=== PATIENT | male | born 1965 | race Caucasian/White ===

== ENCOUNTER → 2018-07-12 | Outpatient (CLI) | payer OTHER ==
[~2018-07-12] MED LIST: ISOVUE-370 76% 100ML VIAL (Q9967) As Ordered
== END ==
LOC: M RAD 10:08
DX: R13.10 Dysphagia, unspecified (principal)
CPT/HCPCS: Q9967

== ENCOUNTER → 2019-02-21 | Outpatient (CLI) | payer MEDICAID, SELFPAY ==
[~2019-02-21] MED LIST changes: +ATEN50TA2; +GUAIFENESIN; +IBUP600T; -ISOVUE-370 76% 100ML VIAL (Q9967) As Ordered; +NICO21DI4; +PERC5TAB8; +PROT1TAB2; +SILVADENE CREAM; +blood pressure med
--- NOTE | 2019-02-21 15:53 | REP ---
TRANSRECTAL PROSTATE ULTRASOUND: Real-time sonographic evaluation of the prostate performed utilizing transrectal probe. Size of the gland is 3.8 x 2.7 x 4.0 cm, total volume is 21.2 mL. No peripheral zone nodule is seen. A few tiny echogenic calcifications are seen in the prostate. There is a periurethral cyst 7 x 4 x 6 mm. No other abnormalities are seen. Electronically Signed by Stephon Davis MD 02/21/2019 04:03 P
== END ==
LOC: M RAD 10:55
PROVIDERS: ATTEND Nurse Practitioner Adult Health
DX: N42.0 Calculus of prostate (principal); N36.8 Other specified disorders of urethra

== ENCOUNTER 2019-05-12 09:36 | Emergency (ER) | payer MEDICAID, OTHER ==
[~2019-05-12] VITALS: Ht 182.9 cm; Wt 67.3 kg
[~2019-05-12 09:36] MED LIST changes: -ATEN50TA2; +ATEN50TA2 PO
[2019-05-12 10:20] LABS: BASO % 0.2 % (0.0-1.0); EOS # 0.1 10^3/uL (0.0-0.50); EOS % 0.8 % (0.0-3.0); HEMATOCRIT 48.8 % (42.0-52.0); HEMOGLOBIN 16.4 g/dl (13.5-17.5); LYMPH # 1.6 10^3/uL (1.5-4.5); LYMPH % 26.4 % (24.0-44.0); MEAN CORPUSCULAR HEMOGLOBIN 32.3 pg (27.0-33.0); MEAN CORPUSCULAR HGB CONC 33.6 g/dl (32.0-36.5); MEAN CORPUSCULAR VOLUME 96.3 fl (80.0-96.0); MONO # 0.9 10^3/uL (0.0-0.8); MONO % 14.7 % (0.0-5.0); NEUTROPHILS # 3.5 10^3/uL (1.8-7.7); NEUTROPHILS % 57.6 % (36.0-66.0); PLATELET COUNT, AUTOMATED 172 10^3/uL (150-450); RED BLOOD COUNT 5.07 10^6/uL (4.30-6.10)
[2019-05-12 10:43] LABS: ALBUMIN 4.3 GM/DL (3.2-5.2); ALT/SGPT 28 U/L (12-78); BILIRUBIN,DIRECT 0.2 MG/DL (0.0-0.2); BILIRUBIN,TOTAL 0.8 MG/DL (0.2-1.0); BLOOD UREA NITROGEN 13 MG/DL (7-18); C REACTIVE PROTEIN QUANTITATIV 0.89 MG/DL (0.00-0.30); CALCIUM LEVEL 9.4 MG/DL (8.5-10.1); CARBON DIOXIDE LEVEL 29 MEQ/L (21-32); CHLORIDE LEVEL 106 MEQ/L (98-107); CREATININE FOR GFR 0.86 MG/DL (0.70-1.30); GLOMERULAR FILTRATION RATE > 60.0 (>56); GLUCOSE, FASTING 105 MG/DL (70-100); POTASSIUM SERUM 5.5 MEQ/L (3.5-5.1); SODIUM LEVEL 138 MEQ/L (136-145); TOTAL PROTEIN 7.9 GM/DL (6.4-8.2)
[2019-05-12 10:47] LABS: ERYTHROCYTE SEDIMENTATION RATE 4 mm/hr (0-20)
--- NOTE | 2019-05-12 11:39 | REP ---
LEFT KNEE SERIES: Five views of the left knee performed. There is no acute fracture or dislocation. Metallic newton is seen in the distal femur as well as two metallic screws. There is mild medial joint space narrowing. There is mild spurring of the tibial spines. Rounded calcific densities along the medial patellar facet and medial femoral condyle may represent old fractures. There is mild patellofemoral compartment narrowing. There is a mild to moderate joint effusion. Vascular calcifications are seen posteriorly. IMPRESSION: Mild degenerative changes with evidence of prior trauma. No acute fracture or dislocation. Mild to moderate joint effusion. Electronically Signed by Stephon Davis MD 05/12/2019 04:20 P
[2019-05-12] MEDS ORDERED: LIDOCAINE 1% SDV INJ 30 ML VIAL SC SCH (12:15)
[2019-05-12] MEDS ORDERED: IBUP80TA PO (12:38)
[2019-05-12 12:47] VITALS: BP 140/90
[2019-05-12 13:26] LABS: SOURCE, BODY FLUID GLUCOSE LFT KNEE
[2019-05-12 13:27] LABS: SOURCE, BODY FLUID URIC ACID LFT KNEE
[2019-05-12 13:29] LABS: CRYSTALS, BODY FLUID NONE SEEN (NONE SEEN); SOURCE, BODY FLUID CRYSTALS LFT KNEE
[2019-05-12 13:47] LABS: SOURCE, BODY FLUID LFT KNEE; SYNOVIAL FLUID COLOR RED (YELLOW)
[2019-05-13] MEDS ORDERED: NEOSPORIN TOP OINT 15GM TOP ONE (09:00)
== END 2019-05-12 13:49 | disposition home or self-care (01) ==
LOC: M ED 09:36
DX: M17.12 Unilateral primary osteoarthritis, left knee (principal); E87.5 Hyperkalemia; I10 Essential (primary) hypertension; Z79.899 Other long term (current) drug therapy; F17.210 Nicotine dependence, cigarettes, uncomplicated

== ENCOUNTER → 2022-06-20 | Outpatient (CLI) | payer OTHER ==
[~2022-06-20] MED LIST changes: +IBUP80TA PO
== END ==
LOC: M RAD 09:54
PROVIDERS: ATTEND Otolaryngology
DX: R13.10 Dysphagia, unspecified (principal)

== ENCOUNTER → 2022-10-08 | Outpatient (CLI) | payer OTHER ==
[~2022-10-08] MED LIST changes: +ATEN25TA PO; +ATOR80TA59 PO; +B-1100TA2 PO; +CLOP75TA2 PO; +FOLI1TAB11 PO; +GABA-1171 PO; +PANT40TA29 PO
== END ==
LOC: M LABSMTC 10:41
PROVIDERS: ATTEND Anesthesiology
DX: Z01.812 Encounter for preprocedural laboratory examination (principal); Z20.822 Contact with and (suspected) exposure to COVID-19

== ENCOUNTER 2022-10-11 10:14 | Day surgery (SDC) | payer OTHER ==
[~2022-10-11] VITALS: Ht 185.4 cm; Wt 74.8 kg
[2022-10-11] MEDS ORDERED: fentaNYL 100 MCG/2 ML INJECTION As Ordered ONE ×2 (10:32→11:08)
[2022-10-11] MEDS ORDERED: ROCURONIUM BROMIDE 50 MG/5 ML VIAL As Ordered ONE ×2 (10:32→11:11)
[2022-10-11] MEDS ORDERED: LIDOCAINE 2% 100MG/5ML SDV (FOR ANES.) As Ordered ONE ×2 (10:32→11:11)
[2022-10-11] MEDS ORDERED: propofoL 200 MG/20 ML VIAL As Ordered ONE ×2 (10:32→11:10)
[2022-10-11] MEDS ORDERED: MIDAZOLAM INJ 2MG/2ML VIAL (J2250 PER 1MG) As Ordered ONE ×2 (10:33→11:08)
[2022-10-11] MEDS ORDERED: dexameTHASONE 4 MG/ML 1ML VIAL (J1100 PER 1MG) As Ordered ONE (10:33)
[2022-10-11] MEDS ORDERED: ONDANSETRON 4MG 2ML VIAL As Ordered ONE (10:33)
[2022-10-11] MEDS ORDERED: OXYMETAZOLINE 0.05% NASAL SPRAY (AFRIN) As Ordered ONE (10:42)
[2022-10-11] MEDS ORDERED: LIDOCAINE W/EPINEPHRINE 1% 20ML VIAL As Ordered ONE (10:42)
[2022-10-11] MEDS ORDERED: SUGAMMADEX SODIUM 500 MG/5 ML VIAL (BRIDION) As Ordered ONE (12:17)
[2022-10-11] MEDS ORDERED: LR 1,000 ML IV SCH ×2 (12:20→13:10)
[2022-10-11] MEDS ORDERED: ONDANSETRON 4MG 2ML VIAL IV PRN ×2 (12:20→13:10)
[2022-10-11] MEDS ORDERED: oxyCODONE 5MG TAB PO PRN (12:20)
[2022-10-11] MEDS ORDERED: ANEXSIA, NORCO 7.5MG/325MG TABLET(HYDROCODONE/APAP) PO PRN (13:10)
[2022-10-11 14:10] VITALS: BP 143/74
== END 2022-10-11 14:25 | disposition home or self-care (01) ==
LOC: M SDC 10:14
PROVIDERS: ATTEND Otolaryngology
DX: C32.1 Malignant neoplasm of supraglottis (principal); I10 Essential (primary) hypertension; F12.10 Cannabis abuse, uncomplicated; F17.220 Nicotine dependence, chewing tobacco, uncomplicated; Z79.02 Long term (current) use of antithrombotics/antiplatelets; Z79.899 Other long term (current) drug therapy
CPT/HCPCS: 31536; 88305; J1100; J2250; J2405; J3010

== ENCOUNTER → 2022-11-01 | Outpatient (CLI) | payer OTHER ==
[~2022-11-01] MED LIST changes: +AMOX875T2 PO; +B-12100010 PO; +HYDR-3713 PO; +METH-1164 PO; +NEUR600T PO; +THIA100TA PO
== END ==
LOC: M ONCR 08:57
PROVIDERS: ATTEND General Practice
DX: C32.1 Malignant neoplasm of supraglottis (principal); F17.220 Nicotine dependence, chewing tobacco, uncomplicated; S81.802A Unspecified open wound, left lower leg, initial encounter; E78.5 Hyperlipidemia, unspecified; I51.9 Heart disease, unspecified; Z79.02 Long term (current) use of antithrombotics/antiplatelets; Z79.899 Other long term (current) drug therapy; Z95.820 Peripheral vascular angioplasty status with implants and grafts
CPT/HCPCS: 31575; G0463

== ENCOUNTER → 2022-11-13 | Outpatient (CLI) | payer OTHER ==
[~2022-11-13] MED LIST changes: +ISOVUE-370 76% 100ML VIAL As Ordered ONE
[2022-11-13 09:01] LABS: HEMATOCRIT 38.2 % (42.0-52.0); HEMOGLOBIN 12.1 g/dl (13.5-17.5); MEAN CORPUSCULAR HEMOGLOBIN 28.9 pg (27.0-33.0); MEAN CORPUSCULAR HGB CONC 31.7 g/dl (32.0-36.5); MEAN CORPUSCULAR VOLUME 91.2 fl (80.0-96.0); PLATELET COUNT, AUTOMATED 297 10^3/uL (150-450); RED BLOOD COUNT 4.19 10^6/uL (4.30-6.10); WHITE BLOOD COUNT 4.3 10^3/uL (4.0-10.0)
[2022-11-13 09:27] LABS: ALBUMIN 3.6 G/DL (3.2-5.2); ALKALINE PHOSPHATASE 99 U/L (46-116); ALT/SGPT 21 U/L (7.0-40); AST/SGOT 29 U/L (<34); BILIRUBIN,TOTAL 0.3 MG/DL (0.3-1.2); BLOOD UREA NITROGEN 9 MG/DL (9-23); CALCIUM LEVEL 9.4 MG/DL (8.5-10.1); CARBON DIOXIDE LEVEL 27 MMOL/L (20-31); CHLORIDE LEVEL 104 MMOL/L (98-107); CREATININE FOR GFR 0.63 MG/DL (0.70-1.30); GLOMERULAR FILTRATION RATE > 60.0 (>56); GLUCOSE, FASTING 97 MG/DL (60-100); POTASSIUM SERUM 4.7 MMOL/L (3.5-5.1); SODIUM LEVEL 139 MMOL/L (136-145); TOTAL PROTEIN 7.4 G/DL (5.7-8.2)
[2022-11-13 09:28] LABS: THYROID STIMULATING HORMONE 1.107 uIU/ML (0.55-4.78)
[2022-11-13 09:29] LABS: FREE T4 0.92 NG/DL (0.89-1.76)
== END ==
LOC: M RAD 07:57
PROVIDERS: ATTEND General Practice
DX: C32.1 Malignant neoplasm of supraglottis (principal); L97.929 Non-pressure chronic ulcer of unspecified part of left lower leg with unspecified severity

== ENCOUNTER 2022-11-16 10:10 | Outpatient (RCR) | payer OTHER ==
[~2022-11-16 10:10] MED LIST changes: -ISOVUE-370 76% 100ML VIAL As Ordered ONE
[2022-11-23] MEDS ORDERED: HYDR-3713 PO (12:25)
== END 2022-11-25 ==
LOC: M ONCR 10:10
PROVIDERS: ATTEND General Practice
DX: C32.1 Malignant neoplasm of supraglottis (principal)

== ENCOUNTER → 2022-12-26 | Outpatient (RCR) | payer OTHER ==
[~2022-12-26] MED LIST changes: +MAGICMW SSP; +ONDA4TAB6 PO; +PERC10TA26 PO; +XANA0.5T PO
== END ==
LOC: M ONCR 11-29 09:26
PROVIDERS: ATTEND General Practice
DX: C32.1 Malignant neoplasm of supraglottis (principal)

== ENCOUNTER 2023-01-22 09:20 | Outpatient (RCR) | payer OTHER ==
[~2023-01-22 09:20] MED LIST changes: +PERCOCET PO
[2023-01-25] MEDS ORDERED: XANA0.5T PO (12:06)
== END 2023-01-23 ==
LOC: M ONCR 09:20
PROVIDERS: ATTEND General Practice
DX: C32.1 Malignant neoplasm of supraglottis (principal); L97.929 Non-pressure chronic ulcer of unspecified part of left lower leg with unspecified severity

== ENCOUNTER → 2023-03-28 | Outpatient (CLI) | payer OTHER ==
[~2023-03-28] MED LIST changes: +ONDA-83 PO; +ONDANSETRON 4MG ORAL DISINTEGRATING TAB PO ONE
== END ==
LOC: M ONCR 10:03
PROVIDERS: ATTEND General Practice
DX: M79.605 Pain in left leg (principal); R07.0 Pain in throat; R13.10 Dysphagia, unspecified; T86.821 Skin graft (allograft) (autograft) failure; Z92.3 Personal history of irradiation

== ENCOUNTER → 2023-04-09 | Outpatient (CLI) | payer OTHER ==
[~2023-04-09] MED LIST changes: -ONDANSETRON 4MG ORAL DISINTEGRATING TAB PO ONE
== END ==
LOC: M PLARAD 15:26
PROVIDERS: ATTEND General Practice
DX: C32.1 Malignant neoplasm of supraglottis (principal)
CPT/HCPCS: 78815; A9552

== ENCOUNTER → 2023-04-17 | Outpatient (CLI) | payer OTHER | LOC: M ONCR 15:00 | PROVIDERS: ATTEND General Practice | DX: C32.1 Malignant neoplasm of supraglottis (principal); L97.929 Non-pressure chronic ulcer of unspecified part of left lower leg with unspecified severity; F17.220 Nicotine dependence, chewing tobacco, uncomplicated; Z79.01 Long term (current) use of anticoagulants; Z79.899 Other long term (current) drug therapy; Z92.3 Personal history of irradiation; Z95.820 Peripheral vascular angioplasty status with implants and grafts | CPT/HCPCS: 31575; G0463 ==

== ENCOUNTER → 2023-07-18 | Outpatient (CLI) | payer OTHER ==
[2023-07-18 16:42] LABS: BASO % 0.2 % (0.0-1.0); EOS % 0.8 % (0.0-3.0); HEMATOCRIT 39.2 % (42.0-52.0); HEMOGLOBIN 12.2 g/dl (13.5-17.5); LYMPH % 18.3 % (24.0-44.0); MEAN CORPUSCULAR HEMOGLOBIN 26.2 pg (27.0-33.0); MEAN CORPUSCULAR HGB CONC 31.1 g/dl (32.0-36.5); MEAN CORPUSCULAR VOLUME 84.3 fl (80.0-96.0); MONO # 0.7 10^3/uL (0.0-0.8); MONO % 13.1 % (2.0-8.0); NEUTROPHILS # 3.5 10^3/uL (1.5-8.5); NEUTROPHILS % 67.2 % (36.0-66.0); PLATELET COUNT, AUTOMATED 226 10^3/uL (150-450); RED BLOOD COUNT 4.65 10^6/uL (4.30-6.10); WHITE BLOOD COUNT 5.3 10^3/uL (4.0-10.0)
[2023-07-18 17:05] LABS: ALBUMIN 3.8 G/DL (3.2-5.2); ALKALINE PHOSPHATASE 93 U/L (46-116); ALT/SGPT 47 U/L (7.0-40); AST/SGOT 41 U/L (<34); BILIRUBIN,TOTAL 0.3 MG/DL (0.3-1.2); BLOOD UREA NITROGEN 8 MG/DL (9-23); CALCIUM LEVEL 9.4 MG/DL (8.3-10.6); CARBON DIOXIDE LEVEL 24 MMOL/L (20-31); CHLORIDE LEVEL 103 MMOL/L (98-107); CHOLESTEROL LEVEL 127 MG/DL (<200); CHOLESTEROL RISK RATIO 2.25 (<5); CREATININE FOR GFR 0.57 MG/DL (0.70-1.30); GLOMERULAR FILTRATION RATE > 60.0 (>49); GLUCOSE, FASTING 83 MG/DL (74-106); HDL CHOLESTEROL 56.3 MG/DL (>40); LDL CHOLESTEROL 52.1 MG/DL (<100); NON-HDL-C 70.7 MG/DL; SODIUM LEVEL 137 MMOL/L (136-145); TOTAL PROTEIN 7.4 G/DL (5.7-8.2); TRIGLYCERIDES LEVEL 93 MG/DL (<150)
[2023-07-18 17:07] LABS: FREE T4 0.95 NG/DL (0.89-1.76); THYROID STIMULATING HORMONE 1.428 uIU/ML (0.55-4.78)
== END ==
LOC: M ONCR 15:00
PROVIDERS: ATTEND General Practice
DX: Z08 Encounter for follow-up examination after completed treatment for malignant neoplasm (principal); Z85.21 Personal history of malignant neoplasm of larynx; Z85.828 Personal history of other malignant neoplasm of skin; R05.9 Cough, unspecified; F17.220 Nicotine dependence, chewing tobacco, uncomplicated; Z71.2 Person consulting for explanation of examination or test findings; Z79.01 Long term (current) use of anticoagulants; Z72.89 Other problems related to lifestyle; Z79.899 Other long term (current) drug therapy; Z92.3 Personal history of irradiation; Z97.14 Presence of artificial left leg (complete) (partial)
CPT/HCPCS: 31575; 36415; 80053; 80061; 84439; 84443; 85025; G0463

== ENCOUNTER 2023-09-18 11:08 | Emergency (ER) | payer OTHER ==
[~2023-09-18] VITALS: Ht 185.4 cm; Wt 71.2 kg
[2023-09-18] MEDS ORDERED: TRAZ-252 (11:54)
[2023-09-18] MEDS ORDERED: DULO-34 (11:54)
[2023-09-18 13:00] VITALS: BP 129/82; O2SAT 98
[2023-09-18 13:13] VITALS: TEMP 98.6
== END 2023-09-18 13:25 | disposition home or self-care (01) ==
LOC: M ED 12:47
DX: S09.90XA Unspecified injury of head, initial encounter (principal); W01.198A Fall on same level from slipping, tripping and stumbling with subsequent striking against other object, initial encounter; I10 Essential (primary) hypertension; F10.10 Alcohol abuse, uncomplicated; Z87.891 Personal history of nicotine dependence; Y92.009 Unspecified place in unspecified non-institutional (private) residence as the place of occurrence of the external cause; Y93.9 Activity, unspecified; Y99.9 Unspecified external cause status; Z79.01 Long term (current) use of anticoagulants; Z79.891 Long term (current) use of opiate analgesic; Z79.899 Other long term (current) drug therapy

== ENCOUNTER → 2023-10-23 | Outpatient (CLI) | payer OTHER ==
[~2023-10-23] MED LIST changes: +DULO-34; +DULO1CAP6 PO; +TRAZ-252
== END ==
LOC: M ONCR 15:07
PROVIDERS: ATTEND General Practice
DX: C32.1 Malignant neoplasm of supraglottis (principal); G54.6 Phantom limb syndrome with pain; R07.0 Pain in throat; F17.220 Nicotine dependence, chewing tobacco, uncomplicated; Z71.2 Person consulting for explanation of examination or test findings; Z79.01 Long term (current) use of anticoagulants; Z79.899 Other long term (current) drug therapy; Z92.3 Personal history of irradiation; Z97.14 Presence of artificial left leg (complete) (partial)
CPT/HCPCS: 31575; G0463

== ENCOUNTER → 2024-04-23 | Outpatient (CLI) | payer BC ==
[~2024-04-23] MED LIST changes: +ISOVUE-370 76% 100ML VIAL As Ordered ONE
== END ==
LOC: M RAD 08:42
PROVIDERS: ATTEND General Practice
DX: C32.1 Malignant neoplasm of supraglottis (principal)
CPT/HCPCS: 70491; 71260; Q9967

== ENCOUNTER → 2024-04-30 | Outpatient (CLI) | payer BC ==
[~2024-04-30] MED LIST changes: -ISOVUE-370 76% 100ML VIAL As Ordered ONE; +ONDA-282 PO; -ONDA4TAB6 PO
== END ==
LOC: M ONCR 10:32
PROVIDERS: ATTEND General Practice
DX: Z08 Encounter for follow-up examination after completed treatment for malignant neoplasm (principal); I73.9 Peripheral vascular disease, unspecified; Z85.21 Personal history of malignant neoplasm of larynx; Z72.0 Tobacco use; Z79.01 Long term (current) use of anticoagulants; Z79.899 Other long term (current) drug therapy; Z89.512 Acquired absence of left leg below knee; Z92.3 Personal history of irradiation
CPT/HCPCS: 31575; G0463

== ENCOUNTER → 2024-04-30 | Outpatient (CLI) | payer BC ==
[2024-04-30 12:44] LABS: HEMATOCRIT 39.5 % (42.0-52.0); MEAN CORPUSCULAR HEMOGLOBIN 27.6 pg (27.0-33.0); MEAN CORPUSCULAR HGB CONC 32.9 g/dl (32.0-36.5); MEAN CORPUSCULAR VOLUME 83.9 fl (80.0-96.0); PLATELET COUNT, AUTOMATED 168 10^3/uL (150-450); RED BLOOD COUNT 4.71 10^6/uL (4.30-6.10)
[2024-04-30 13:06] LABS: ALBUMIN 4.2 G/DL (3.2-5.2); BILIRUBIN,DIRECT 0.3 MG/DL (<0.4); BILIRUBIN,TOTAL 0.7 MG/DL (0.3-1.2); PERCENT SATURATION 13.4 % (19.7-50.0); TOTAL PROTEIN 7.8 G/DL (5.7-8.2)
[2024-04-30 13:09] LABS: FERRITIN 24.1 NG/ML (10.5-307.3)
== END ==
LOC: M LAB 11:48
PROVIDERS: ATTEND Registered Nurse
DX: D50.9 Iron deficiency anemia, unspecified (principal); K76.0 Fatty (change of) liver, not elsewhere classified

== ENCOUNTER → 2024-08-08 | Outpatient (CLI) | payer BC ==
[~2024-08-08] MED LIST changes: +CETI10TA PO
[2024-08-08 13:52] LABS: FREE T4 0.93 NG/DL (0.89-1.76); THYROID STIMULATING HORMONE 2.703 uIU/ML (0.55-4.78)
== END ==
LOC: M ONCR 11:39
PROVIDERS: ATTEND General Practice
DX: C32.1 Malignant neoplasm of supraglottis (principal)

== ENCOUNTER → 2024-11-07 | Outpatient (CLI) | payer BC, OTHER | LOC: M ONCR 10:58 | PROVIDERS: ATTEND General Practice | DX: C32.1 Malignant neoplasm of supraglottis (principal); K13.21 Leukoplakia of oral mucosa, including tongue; Z87.891 Personal history of nicotine dependence; Z92.3 Personal history of irradiation; Z72.89 Other problems related to lifestyle; Z79.02 Long term (current) use of antithrombotics/antiplatelets; Z79.899 Other long term (current) drug therapy | CPT/HCPCS: 31575; G0463 ==

== ENCOUNTER → 2024-11-12 | Outpatient (REF) | payer OTHER | LOC: M LAB REF 17:25 | PROVIDERS: ATTEND Otolaryngology | DX: C02.9 Malignant neoplasm of tongue, unspecified (principal) ==

== ENCOUNTER → 2024-12-10 | Outpatient (CLI) | payer OTHER ==
[~2024-12-10] MED LIST changes: +ISOVUE-370 76% 100ML VIAL As Ordered ONE
== END ==
LOC: M RAD 09:35
PROVIDERS: ATTEND Otolaryngology
DX: C02.9 Malignant neoplasm of tongue, unspecified (principal)
CPT/HCPCS: 70491; Q9967

== ENCOUNTER → 2024-12-22 | Outpatient (CLI) | payer OTHER ==
[~2024-12-22] MED LIST changes: -ISOVUE-370 76% 100ML VIAL As Ordered ONE
== END ==
LOC: M PLARAD 08:08
PROVIDERS: ATTEND Otolaryngology
DX: C02.9 Malignant neoplasm of tongue, unspecified (principal)
CPT/HCPCS: 78815; A9552

== ENCOUNTER 2025-02-23 16:52 | Inpatient (IN) | payer OTHER ==
[~2025-02-23] VITALS: Ht 185.4 cm; Wt 67.0 kg
[~2025-02-23 16:52] MED LIST changes: +ROPI0.5T33 PO; -TRAZ-252; +TRAZ-252 PO
[2025-02-23 18:20] VITALS: BP 119/79; TEMP 97.5
[2025-02-23 18:53] LABS: BASO % 0.1 % (0.0-1.0); EOS # 0.1 10^3/uL (0.0-0.5); EOS % 1.5 % (0.0-3.0); HEMATOCRIT 42.3 % (42.0-52.0); HEMOGLOBIN 14.2 g/dl (13.5-17.5); LYMPH # 1.3 10^3/uL (1.5-5.0); MEAN CORPUSCULAR HEMOGLOBIN 30.1 pg (27.0-33.0); MEAN CORPUSCULAR HGB CONC 33.6 g/dl (32.0-36.5); MEAN CORPUSCULAR VOLUME 89.6 fl (80.0-96.0); MONO # 0.9 10^3/uL (0.0-0.8); MONO % 12.6 % (2.0-8.0); NEUTROPHILS % 67.4 % (36.0-66.0); PLATELET COUNT, AUTOMATED 383 10^3/uL (150-450); RED BLOOD COUNT 4.72 10^6/uL (4.30-6.10); WHITE BLOOD COUNT 7.5 10^3/uL (4.0-10.0)
[2025-02-23] MEDS ORDERED: ONDANSETRON 4MG 2ML VIAL IV PRN (19:15)
[2025-02-23] MEDS ORDERED: NALOXONE INJ 0.4MG/1ML VIAL IV PRN (19:15)
[2025-02-23] MEDS ORDERED: MAALOX 30 ML SUSP *UDC PO PRN (19:15)
[2025-02-23] MEDS ORDERED: MOM 30ML SUSPENSION UDC PO PRN (19:15)
[2025-02-23 19:20] LABS: ALBUMIN 2.7 G/DL (3.2-5.2); ALKALINE PHOSPHATASE 84 U/L (40-129); ALT/SGPT 22 U/L (7.0-40); AST/SGOT 20 U/L (<34); BILIRUBIN,TOTAL 0.4 MG/DL (0.3-1.2); BLOOD UREA NITROGEN 7 MG/DL (9-23); CALCIUM LEVEL 10.1 MG/DL (8.3-10.6); CARBON DIOXIDE LEVEL 28 MMOL/L (20-31); CHLORIDE LEVEL 101 MMOL/L (98-107); CREATININE FOR GFR 0.51 MG/DL (0.70-1.30); GLOMERULAR FILTRATION RATE > 60.0 (>49); GLUCOSE, FASTING 109 MG/DL (74-106); MAGNESIUM LEVEL 1.8 MG/DL (1.8-2.4); POTASSIUM SERUM 3.4 MMOL/L (3.5-5.1); SODIUM LEVEL 138 MMOL/L (136-145); TOTAL PROTEIN 7.7 G/DL (5.7-8.2)
[2025-02-23 20:05] LABS: INR 1.07; PROTHROMBIN TIME 14.2 SECONDS (12.5-14.5)
[2025-02-23 20:06] LABS: HEMOGLOBIN A1c 5.1 % (4.0-6.0)
[2025-02-23 20:10] VITALS: BP 118/78; TEMP 97.9; O2SAT 96
[2025-02-23] MEDS: ACETAMINOPHEN *IV* 1,000 MG in IV 1 EA IV ONE (20:13)
[2025-02-23 20:21] LABS: CK-MB VALUE MASS < 1.0 NG/ML (<3.6)
[2025-02-23] MEDS ORDERED: GABA-284 PO ×2 (20:22)
[2025-02-23] MEDS ORDERED: DULO1CAP5 PO (20:22)
[2025-02-23 20:23] LABS: CPK CREATINE PHOSPHOKINASE 36 U/L (46-171); MB/CK RELATIVE INDEX 2.77 (< OR =4)
[2025-02-23] MEDS ORDERED: HOME MED LIST COMPLETE! XX SCH (20:25)
[2025-02-23] MEDS: KCL 10MEQ IN D5/0.45NS 1000ML 1,000 ML IV SCH (21:34)
[2025-02-23] MEDS: HEPARIN SOD (PORCINE) 5000UNITS/ML 1ML VIAL/SYRINGE SC SCH (21:34)
[2025-02-23 23:48] VITALS: BP 121/86; TEMP 96.4; O2SAT 95
[2025-02-24] VITALS (11 sets, daily range): BP systolic 109–131; BP diastolic 63–82; TEMP 96.6–97.6; O2SAT 92–97
[2025-02-24] MEDS ORDERED: LEVALBUTEROL 1.25 MG 0.5ML CONCENTRATE NEB INH PRN (01:55)
[2025-02-24] MEDS: METOPROLOL 5 MG/5 ML VIAL IV SCH ×2 (02:15→16:10)
[2025-02-24] MEDS: LR 1,000 ML IV SCH (02:24)
[2025-02-24] MEDS: GABAPENTIN 400MG CAP PO SCH ×2 (02:46→08:09)
[2025-02-24] MEDS: METOPROLOL 5 MG/5 ML VIAL IV STA (04:16)
[2025-02-24 04:50] LABS: KETONE, URINE AUTO RFX NEGATIVE (NEGATIVE); LEUKOCYTE ESTERASE UR AUTO RFX NEGATIVE (NEGATIVE); MUCUS, URINE RFX SMALL (NEGATIVE); NITRITE, URINE AUTO RFX NEGATIVE (NEGATIVE); RBC, URINE AUTO RFX 2 /HPF (0-3); SQUAM EPITHELIAL CELL UR AURFX 0 /HPF (0-6); WBC, URINE AUTO RFX 1 /HPF (0-3)
[2025-02-24 04:53] LABS: HEMOGLOBIN 14.8 g/dl (13.5-17.5); MEAN CORPUSCULAR HEMOGLOBIN 29.6 pg (27.0-33.0); MEAN CORPUSCULAR HGB CONC 33.6 g/dl (32.0-36.5); PLATELET COUNT, AUTOMATED 389 10^3/uL (150-450); WHITE BLOOD COUNT 6.8 10^3/uL (4.0-10.0)
[2025-02-24 05:22] LABS: ALBUMIN 2.5 G/DL (3.2-5.2); ALKALINE PHOSPHATASE 77 U/L (40-129); ALT/SGPT 20 U/L (7.0-40); AST/SGOT 18 U/L (<34); BILIRUBIN,TOTAL 0.4 MG/DL (0.3-1.2); BLOOD UREA NITROGEN 7 MG/DL (9-23); CALCIUM LEVEL 9.7 MG/DL (8.3-10.6); CARBON DIOXIDE LEVEL 24 MMOL/L (20-31); CHLORIDE LEVEL 105 MMOL/L (98-107); CREATININE FOR GFR 0.51 MG/DL (0.70-1.30); GLOMERULAR FILTRATION RATE > 60.0 (>49); GLUCOSE, FASTING 109 MG/DL (74-106); MAGNESIUM LEVEL 1.7 MG/DL (1.8-2.4); POTASSIUM SERUM 3.6 MMOL/L (3.5-5.1); SODIUM LEVEL 140 MMOL/L (136-145)
[2025-02-24] MEDS: MORPHINE 2 MG/ML 1ML VIAL IV PRN ×2 (16:10→20:35)
[2025-02-24] MEDS: SODIUM CHLORIDE 0.9% INJ 10 ML SYR IV SCH (20:00)
[2025-02-24] MEDS: D5W/0.45% SODIUM CHLORIDE 1,000 ML IV SCH (21:32)
[2025-02-25 04:00] VITALS: BP 165/81; TEMP 97.2; O2SAT 93
[2025-02-25 12:00] VITALS: BP 133/82; TEMP 97.6; O2SAT 98
[2025-02-25 16:00] VITALS: BP 121/77; TEMP 97.5; O2SAT 96
[2025-02-25] MEDS: AMINO AC/ELECTROLYTE/DEX/CALC 1,000 ML IV SCH (17:37)
[2025-02-25] MEDS: FAT EMULSION IV 250 ML IV ONE (17:40)
[2025-02-25] MEDS: INSULIN LISPRO (NovoLOG) PER UNIT SC SCH (17:51)
[2025-02-25 18:04] LABS: MAGNESIUM LEVEL 1.4 MG/DL (1.8-2.4); PHOSPHORUS LEVEL 2.7 MG/DL (2.4-5.1); POTASSIUM SERUM 3.1 MMOL/L (3.5-5.1)
[2025-02-25] MEDS: KCL 20MEQ IN 100ML SWI (KRUN) 20 MEQ in IV 1 EA IV SCH (19:59)
[2025-02-25 20:00] VITALS: BP 136/76; TEMP 97.2; O2SAT 98
[2025-02-25] MEDS: MAG SULF 1GM/100ML (MAG RUN) 1 GM in IV 1 EA IV SCH (20:44)
[2025-02-26] VITALS (19 sets, daily range): BP systolic 109–145; BP diastolic 71–105; TEMP 97.5–98.3; O2SAT 95–97
[2025-02-26] MEDS: POTASSIUM PHOSPHATE INJ 20 MMOL in D5W 250 ML IV ONE (00:09)
[2025-02-26 06:00] LABS: MAGNESIUM LEVEL 1.9 MG/DL (1.8-2.4); PHOSPHORUS LEVEL 3.8 MG/DL (2.4-5.1); POTASSIUM SERUM 3.5 MMOL/L (3.5-5.1)
[2025-02-26] MEDS: METOPROLOL 5 MG/5 ML VIAL IV PRN (14:50)
[2025-02-26] MEDS: DIGOXIN INJ 0.5 MG/2 ML AMP IV STA (14:53)
[2025-02-26] MEDS: dilTIAZem 25MG/5ML VIAL IV STA (15:18)
[2025-02-26] MEDS: NS (Normal Saline) 0.9% 1,000 ML IV ONE (15:55)
[2025-02-26] MEDS: diphenhydrAMINE 50MG/ML VIAL IV STA (16:32)
[2025-02-26] MEDS: methylPREDNISolone 125MG 2ML VIAL IV ONE (16:33)
[2025-02-26] MEDS: diphenhydrAMINE CREAM 30GM TOP SCH (17:00)
[2025-02-26] MEDS ORDERED: diltiaZEM 125 MG in NS 100 ML IV SCH (17:00)
[2025-02-26] MEDS: AMINO AC/ELECTROLYTE/DEX/CALC 2,000 ML IV SCH (17:31)
[2025-02-26] MEDS: FAT EMULSION IV 250 ML IV ONE (17:31)
[2025-02-26] MEDS: FAMOTIDINE IV BAG 20 MG in IV 1 EA IV ONE (17:55)
[2025-02-26] MEDS: INSULIN LISPRO (NovoLOG) PER UNIT SC SCH (18:00)
[2025-02-26 19:11] LABS: MAGNESIUM LEVEL 1.9 MG/DL (1.8-2.4); PHOSPHORUS LEVEL 2.8 MG/DL (2.4-5.1); POTASSIUM SERUM 3.6 MMOL/L (3.5-5.1)
[2025-02-26] MEDS: DIGOXIN INJ 0.5 MG/2 ML AMP IV SCH (20:04)
[2025-02-27] VITALS (7 sets, daily range): BP systolic 127–148; BP diastolic 65–97; TEMP 97.3–98.2; O2SAT 95–98
[2025-02-27 06:16] LABS: MAGNESIUM LEVEL 1.9 MG/DL (1.8-2.4); PHOSPHORUS LEVEL 2.8 MG/DL (2.4-5.1); POTASSIUM SERUM 4.1 MMOL/L (3.5-5.1)
[2025-02-27] MEDS: MAG SULF 1GM/100ML (MAG RUN) 1 GM in IV 1 EA IV ONE (06:39)
[2025-02-27] MEDS: METOPROLOL 5 MG/5 ML VIAL IV SCH (06:41)
[2025-02-27] MEDS: INSULIN LISPRO (NovoLOG) PER UNIT SC SCH (18:00)
[2025-02-27] MEDS: FAT EMULSION IV 250 ML IV ONE (18:27)
[2025-02-27] MEDS: MULTIVITAMIN -ADULT INJECTION 10 ML, ZINC/COPPER/MANGANESE/SELENIUM 1 ML in AMINO AC/EL... IV SCH (18:27)
[2025-02-27 19:29] LABS: MAGNESIUM LEVEL 2.2 MG/DL (1.8-2.4); PHOSPHORUS LEVEL 2.9 MG/DL (2.4-5.1); POTASSIUM SERUM 3.7 MMOL/L (3.5-5.1)
[2025-02-28] VITALS (12 sets, daily range): BP systolic 119–145; BP diastolic 64–82; TEMP 97.3–98.2; O2SAT 91–97
[2025-02-28 05:42] LABS: MAGNESIUM LEVEL 2.1 MG/DL (1.8-2.4); PHOSPHORUS LEVEL 3.9 MG/DL (2.4-5.1); POTASSIUM SERUM 3.8 MMOL/L (3.5-5.1)
[2025-02-28] MEDS: SODIUM CHLORIDE 0.9% INJ 10 ML SYR IV PRN (07:41)
[2025-02-28] MEDS ORDERED: NALOXONE INJ 0.4MG/1ML VIAL IV PRN (15:20)
[2025-02-28] MEDS ORDERED: METOPROLOL 5 MG/5 ML VIAL IV SCH (15:20)
[2025-02-28] MEDS ORDERED: FLEET ENEMA PR PRN (15:20)
[2025-02-28] MEDS ORDERED: BISACODYL 10MG SUPP PR PRN (15:20)
[2025-02-28] MEDS: AMINO AC/ELECTROLYTE/DEX/CALC 2,000 ML IV SCH (17:04)
[2025-02-28] MEDS: INSULIN LISPRO (NovoLOG) PER UNIT SC SCH (17:05)
[2025-02-28] MEDS: FAT EMULSION IV 250 ML IV ONE (17:05)
[2025-02-28] MEDS: METOPROLOL 5 MG/5 ML VIAL IV SCH (18:03)
[2025-02-28 18:43] LABS: MAGNESIUM LEVEL 2.1 MG/DL (1.8-2.4); PHOSPHORUS LEVEL 3.8 MG/DL (2.4-5.1); POTASSIUM SERUM 3.8 MMOL/L (3.5-5.1)
[2025-02-28] MEDS: HYDROMORPHONE HCL 0.5 MG/ 0.5 ML SYRINGE IV PRN (18:48)
[2025-03-01 04:12] VITALS: BP 120/80; TEMP 98; O2SAT 96
[2025-03-01 06:09] LABS: PHOSPHORUS LEVEL 3.7 MG/DL (2.4-5.1); POTASSIUM SERUM 3.9 MMOL/L (3.5-5.1)
[2025-03-01 08:00] VITALS: BP 129/80; TEMP 97.1; O2SAT 97
[2025-03-01] MEDS: HYDROMORPHONE HCL 0.5 MG/ 0.5 ML SYRINGE IV ONE (09:18)
[2025-03-01 12:00] VITALS: BP 122/75; TEMP 97.9; O2SAT 95
[2025-03-01] MEDS: HYDROMORPHONE HCL 0.5 MG/ 0.5 ML SYRINGE IV PRN (13:27)
[2025-03-01 16:59] VITALS: BP 118/71; TEMP 97.6; O2SAT 94
[2025-03-01] MEDS: FAT EMULSION IV 250 ML IV ONE (17:09)
[2025-03-01] MEDS: AMINO AC/ELECTROLYTE/DEX/CALC 2,000 ML IV SCH (17:09)
[2025-03-01] MEDS: INSULIN LISPRO (NovoLOG) PER UNIT SC SCH (18:00)
[2025-03-01 20:41] VITALS: BP 128/80; TEMP 97; O2SAT 95
[2025-03-01 23:19] VITALS: BP 123/75; TEMP 97.1; O2SAT 92
[2025-03-02] VITALS (11 sets, daily range): BP systolic 117–141; BP diastolic 69–85; TEMP 97–98.7; O2SAT 92–100
[2025-03-02 07:58] LABS: MAGNESIUM LEVEL 2.1 MG/DL (1.8-2.4); PHOSPHORUS LEVEL 3.5 MG/DL (2.4-5.1); POTASSIUM SERUM 4.6 MMOL/L (3.5-5.1)
[2025-03-02] MEDS: HYOSCYAMINE SULFATE 0.125 MG SUBL TABLET SL ONE (12:22)
[2025-03-02] MEDS: SCOPOLAMINE 1MG TRANSDERMAL PATCH TOP SCH (12:23)
[2025-03-02] MEDS: LR 1,000 ML IV SCH (15:15)
[2025-03-02] MEDS: ceFAZolin SODIUM 2 GM in DEXTROSE 5% (D5W) ADV/MINI-BAG 50 ML IV ONE (15:15)
[2025-03-02] MEDS ORDERED: MIDAZOLAM INJ 2MG/2ML VIAL As Ordered ONE (16:11)
[2025-03-02] MEDS ORDERED: fentaNYL 100 MCG/2 ML INJECTION As Ordered ONE (16:11)
[2025-03-02] MEDS ORDERED: LIDOCAINE 2% 100MG/5ML SDV (FOR ANES.) As Ordered ONE (16:11)
[2025-03-02] MEDS ORDERED: propofoL 200 MG/20 ML VIAL As Ordered ONE (16:11)
[2025-03-02] MEDS: LIDOCAINE 1% MDV 20ML VIAL SC ONE (16:25)
[2025-03-02] MEDS: ISOVUE-300 61% 100ML VIAL IV ONE (16:25)
[2025-03-02] MEDS: NS (Normal Saline) 0.9% 1,000 ML IV SCH (16:35)
[2025-03-02] MEDS ORDERED: ceFAZolin SODIUM 2 GM in DEXTROSE 5% (D5W) ADV/MINI-BAG 50 ML IV ONE (16:35)
[2025-03-02] MEDS ORDERED: LIDOCAINE 2% JELLY 6ML SYRINGE As Ordered ONE (16:37)
[2025-03-02] MEDS: GLUCAGON INJ 1MG VIAL IV ONE (17:19)
[2025-03-02] MEDS: LIDOCAINE 2% JELLY 6ML SYRINGE XX ONE (17:20)
[2025-03-02] MEDS: INSULIN LISPRO (NovoLOG) PER UNIT SC SCH (18:00)
[2025-03-02] MEDS: MULTIVITAMIN -ADULT INJECTION 10 ML, ZINC/COPPER/MANGANESE/SELENIUM 1 ML in AMINO AC/EL... IV SCH (18:20)
[2025-03-02] MEDS: FAT EMULSION IV 250 ML IV ONE (18:20)
[2025-03-03 04:00] VITALS: BP 124/72; TEMP 97.6; O2SAT 95
[2025-03-03 07:46] VITALS: BP 120/90; TEMP 97.8; O2SAT 97
[2025-03-03 11:58] VITALS: BP_SYST 116; BP_DIAS 107; BP_DIAS 72; TEMP 97.1; O2SAT 98
[2025-03-03 16:00] VITALS: BP 125/75; TEMP 97.3; O2SAT 98
[2025-03-03 18:24] LABS: BASO % 0.3 % (0.0-1.0); EOS # 0.1 10^3/uL (0.0-0.5); EOS % 0.8 % (0.0-3.0); HEMATOCRIT 43.4 % (42.0-52.0); HEMOGLOBIN 14.6 g/dl (13.5-17.5); LYMPH # 0.5 10^3/uL (1.5-5.0); LYMPH % 6.1 % (24.0-44.0); MEAN CORPUSCULAR HEMOGLOBIN 29.4 pg (27.0-33.0); MEAN CORPUSCULAR HGB CONC 33.6 g/dl (32.0-36.5); MEAN CORPUSCULAR VOLUME 87.3 fl (80.0-96.0); MONO # 0.9 10^3/uL (0.0-0.8); MONO % 10.3 % (2.0-8.0); NEUTROPHILS # 7.1 10^3/uL (1.5-8.5); NEUTROPHILS % 81.2 % (36.0-66.0); PLATELET COUNT, AUTOMATED 314 10^3/uL (150-450); RED BLOOD COUNT 4.97 10^6/uL (4.30-6.10); WHITE BLOOD COUNT 8.7 10^3/uL (4.0-10.0)
[2025-03-03 18:52] LABS: ALBUMIN 3.5 G/DL (3.2-5.2); ALKALINE PHOSPHATASE 90 U/L (40-129); ALT/SGPT 77 U/L (7.0-40); AST/SGOT 51 U/L (<34); BILIRUBIN,TOTAL 0.9 MG/DL (0.3-1.2); BLOOD UREA NITROGEN 21 MG/DL (9-23); CALCIUM LEVEL 10.1 MG/DL (8.3-10.6); CARBON DIOXIDE LEVEL 29 MMOL/L (20-31); CHLORIDE LEVEL 98 MMOL/L (98-107); CREATININE FOR GFR 0.48 MG/DL (0.70-1.30); GLOMERULAR FILTRATION RATE > 60.0 (>49); GLUCOSE, FASTING 118 MG/DL (74-106); MAGNESIUM LEVEL 2.3 MG/DL (1.8-2.4); POTASSIUM SERUM 3.7 MMOL/L (3.5-5.1); SODIUM LEVEL 139 MMOL/L (136-145); TOTAL PROTEIN 8.1 G/DL (5.7-8.2)
[2025-03-03] MEDS: INSULIN LISPRO (NovoLOG) PER UNIT SC SCH (19:00)
[2025-03-03 20:15] VITALS: BP 117/78; TEMP 97; O2SAT 98
[2025-03-03] MEDS: FAT EMULSION IV 250 ML IV ONE (21:11)
[2025-03-03] MEDS: AMINO AC/ELECTROLYTE/DEX/CALC 2,000 ML IV SCH (21:11)
[2025-03-03 23:29] VITALS: BP 122/69; TEMP 98.2; O2SAT 98
[2025-03-04] VITALS (7 sets, daily range): BP systolic 104–133; BP diastolic 68–83; TEMP 97.4–98.8; O2SAT 92–98
[2025-03-04] MEDS: INSULIN LISPRO (NovoLOG) PER UNIT SC SCH (16:58)
[2025-03-04] MEDS ORDERED: FAT EMULSION IV 250 ML IV ONE (18:00)
[2025-03-04] MEDS ORDERED: MULTIVITAMIN -ADULT INJECTION 10 ML, ZINC/COPPER/MANGANESE/SELENIUM 1 ML in AMINO AC/EL... IV SCH (18:00)
[2025-03-04] MEDS ORDERED: METOPROLOL 5 MG/5 ML VIAL IV SCH (19:05)
[2025-03-04 19:43] LABS: BASO # 0.1 10^3/uL (0.0-0.2); BASO % 0.6 % (0.0-1.0); EOS # 0.1 10^3/uL (0.0-0.5); EOS % 1.1 % (0.0-3.0); HEMOGLOBIN 14.1 g/dl (13.5-17.5); LYMPH # 0.6 10^3/uL (1.5-5.0); LYMPH % 7.3 % (24.0-44.0); MEAN CORPUSCULAR HEMOGLOBIN 29.1 pg (27.0-33.0); MEAN CORPUSCULAR HGB CONC 32.8 g/dl (32.0-36.5); MEAN CORPUSCULAR VOLUME 88.7 fl (80.0-96.0); MONO # 1.1 10^3/uL (0.0-0.8); MONO % 13.5 % (2.0-8.0); NEUTROPHILS # 6.3 10^3/uL (1.5-8.5); PLATELET COUNT, AUTOMATED 310 10^3/uL (150-450); RED BLOOD COUNT 4.85 10^6/uL (4.30-6.10); WHITE BLOOD COUNT 8.3 10^3/uL (4.0-10.0)
[2025-03-04] MEDS: METOPROLOL TART 25 MG TABLET PO SCH (20:25)
[2025-03-05] MEDS ORDERED: PERMETHRIN 5% CREAM 60 GM TOP SCH
[2025-03-05 00:13] VITALS: BP 100/65; TEMP 97.8; O2SAT 95
[2025-03-05 04:09] VITALS: BP 105/68; TEMP 98.8; O2SAT 95
[2025-03-05 08:19] VITALS: BP 108/59; TEMP 98.6; O2SAT 96
[2025-03-05 08:59] VITALS: BP 108/59
[2025-03-05 12:51] VITALS: BP 99/60; TEMP 98; O2SAT 96
[2025-03-05 13:07] VITALS: BP 99/60
[2025-03-05] MEDS: PERMETHRIN 5% CREAM 60 GM TOP ONE (13:07)
[2025-03-05] MEDS ORDERED: DULO1CAP5 GT (16:57)
[2025-03-05] MEDS ORDERED: DILA1LIQ2 GT (16:57)
[2025-03-05] MEDS ORDERED: METO1TAB87 GT (16:57)
[2025-03-05] MEDS ORDERED: TRAN1DIS4 TOP (16:57)
[2025-03-05] MEDS ORDERED: PERM5CRE9 TOP (16:57)
[2025-03-05] MEDS ORDERED: DULO1CAP6 GT (16:57)
[2025-03-05] MEDS ORDERED: TRAZ-252 GT (16:57)
[2025-03-05] MEDS ORDERED: ROPI0.5T33 GT (16:57)
== END 2025-03-05 17:43 | disposition home health service (06) | DRG 862 ==
LOC: M MS5PR 18:13 → M ICU 02-24 01:31 → M PCU 02-27 17:32
PROVIDERS: ADMIT Internal Medicine Nephrology; ATTEND Internal Medicine Nephrology
PROC: BD12ZZZ Fluoroscopy of Stomach (ICD-10-PCS; 2025-03-02)
PROC: 0DH63UZ Insertion of Feeding Device into Stomach, Percutaneous Approach (ICD-10-PCS; principal; 2025-03-02 16:00)
DX: Z51.5 Encounter for palliative care (principal); C15.9 Malignant neoplasm of esophagus, unspecified; E46 Unspecified protein-calorie malnutrition; I95.9 Hypotension, unspecified; I47.10 Supraventricular tachycardia, unspecified; R13.10 Dysphagia, unspecified; C02.9 Malignant neoplasm of tongue, unspecified; C32.1 Malignant neoplasm of supraglottis; E78.5 Hyperlipidemia, unspecified; E87.6 Hypokalemia; G89.3 Neoplasm related pain (acute) (chronic); I10 Essential (primary) hypertension; I25.10 Atherosclerotic heart disease of native coronary artery without angina pectoris; I48.0 Paroxysmal atrial fibrillation; I73.9 Peripheral vascular disease, unspecified; K59.00 Constipation, unspecified; Z92.3 Personal history of irradiation; Z95.2 Presence of prosthetic heart valve; Z89.512 Acquired absence of left leg below knee; Z87.891 Personal history of nicotine dependence; Z66 Do not resuscitate; Z79.899 Other long term (current) drug therapy

== ENCOUNTER 2025-03-04 14:13 | Outpatient (RCR) | payer OTHER ==
[~2025-03-04 14:13] MED LIST changes: +DULO1CAP5 PO; +GABA-284 PO; +LIDOCAINE 2% JELLY 6ML SYRINGE As Ordered ONE
[2025-03-05] MEDS ORDERED: TRAZ-252 GT (16:57)
[2025-03-05] MEDS ORDERED: METO1TAB87 GT (16:57)
[2025-03-05] MEDS ORDERED: DULO1CAP5 GT (16:57)
[2025-03-05] MEDS ORDERED: DULO1CAP6 GT (16:57)
[2025-03-05] MEDS ORDERED: PERM5CRE9 TOP (16:57)
[2025-03-05] MEDS ORDERED: DILA1LIQ2 GT (16:57)
[2025-03-05] MEDS ORDERED: TRAN1DIS4 TOP (16:57)
[2025-03-05] MEDS ORDERED: ROPI0.5T33 GT (16:57)
[2025-03-10] MEDS ORDERED: DILA1LIQ2 GT (11:47)
[2025-03-10] MEDS ORDERED: JEVILIQ12 PO (14:33)
[2025-03-12] MEDS ORDERED: NYST-38 SS (13:37)
[2025-03-23] MEDS ORDERED: LORA2CON5 PEG (15:45)
== END 2025-03-25 ==
LOC: M ONCR 14:13
PROVIDERS: ATTEND General Practice
DX: Z51.0 Encounter for antineoplastic radiation therapy (principal); C15.4 Malignant neoplasm of middle third of esophagus

== ENCOUNTER → 2025-04-02 | Outpatient (CLI) | payer OTHER ==
[~2025-04-02] MED LIST changes: +DILA1LIQ2 GT; +DULO1CAP5 GT; +DULO1CAP6 GT; +JEVILIQ12 PO; -LIDOCAINE 2% JELLY 6ML SYRINGE As Ordered ONE; +LORA2CON5 PEG; +METO1TAB87 GT; +NYST-38 SS; +PERM5CRE9 TOP; +ROPI0.5T33 GT; +TRAN1DIS4 TOP; +TRAZ-252 GT
== END ==
LOC: M ONCR 14:37
PROVIDERS: ATTEND General Practice
DX: C15.9 Malignant neoplasm of esophagus, unspecified (principal); C04.9 Malignant neoplasm of floor of mouth, unspecified; Z92.3 Personal history of irradiation

== ENCOUNTER → 2025-04-02 | Outpatient (CLI) | payer OTHER ==
[~2025-04-02] VITALS: Ht 182.9 cm; Wt 67.4 kg
[2025-04-02 14:49] VITALS: BP 112/72; O2SAT 97
== END ==
LOC: M PAL 14:36
PROVIDERS: ATTEND Physician Assistant
DX: Z51.5 Encounter for palliative care (principal); Z66 Do not resuscitate; C15.9 Malignant neoplasm of esophagus, unspecified; C02.9 Malignant neoplasm of tongue, unspecified; R13.10 Dysphagia, unspecified; Z79.891 Long term (current) use of opiate analgesic; Z79.83 Long term (current) use of bisphosphonates

== ENCOUNTER → 2025-06-02 | Outpatient (CLI) | payer OTHER ==
[~2025-06-02] MED LIST changes: +LACT20EL PO
== END ==
LOC: M PAL 14:20
PROVIDERS: ATTEND Physician Assistant
DX: Z51.5 Encounter for palliative care (principal); Z66 Do not resuscitate; C02.1 Malignant neoplasm of border of tongue; C02.9 Malignant neoplasm of tongue, unspecified; R13.10 Dysphagia, unspecified; Z93.1 Gastrostomy status; Z92.3 Personal history of irradiation; Z79.891 Long term (current) use of opiate analgesic

== ENCOUNTER 2025-06-30 13:39 | Emergency (ER) | payer OTHER ==
[~2025-06-30] VITALS: Ht 182.9 cm; Wt 58.0 kg
[~2025-06-30 13:39] MED LIST changes: -PERM5CRE9 TOP; +PERM60CR2 TOP
[2025-06-30] MEDS: LIDOCAINE 1% MDV 20 ML VIAL SC SCH (15:55)
[2025-06-30] MEDS ORDERED: SODIUM CHLORIDE 0.9% 1000 ML XX SCH (15:55)
[2025-06-30] MEDS: LIDOCAINE 2% JELLY 6 ML SYRINGE TOP SCH (16:28)
[2025-06-30] MEDS: ISOVUE-300 61% 100 ML VIAL IV SCH (16:28)
[2025-06-30 16:50] VITALS: BP 128/72; TEMP 97.4; O2SAT 97
[2025-07-30] MEDS ORDERED: PANT40TA29 PO (11:56)
[2025-08-24] MEDS ORDERED: LORA2CON5 PEG (10:23)
== END 2025-06-30 16:56 | disposition home or self-care (01) ==
LOC: M ED 13:39
DX: K94.23 Gastrostomy malfunction (principal); I10 Essential (primary) hypertension; C32.9 Malignant neoplasm of larynx, unspecified; Z79.83 Long term (current) use of bisphosphonates; Z79.899 Other long term (current) drug therapy
CPT/HCPCS: 49450; 74021; 99283; C1887; Q9967

== ENCOUNTER 2025-07-26 13:42 | Emergency (ER) | payer OTHER ==
[~2025-07-26] VITALS: Ht 182.9 cm; Wt 57.7 kg
[~2025-07-26 13:42] MED LIST changes: +PERM5CRE9 TOP; -PERM60CR2 TOP
[2025-07-26 16:08] LABS: BASO # 0.0 10^3/uL (0.0-0.2); BASO % 0.1 % (0.0-1.0); EOS # 0.0 10^3/uL (0.0-0.5); EOS % 0.1 % (0.0-3.0); LYMPH # 0.8 10^3/uL (1.5-5.0); LYMPH % 10.9 % (24.0-44.0); MONO # 0.9 10^3/uL (0.0-0.8); MONO % 12.3 % (2.0-8.0); NEUTROPHILS # 5.3 10^3/uL (1.5-8.5); NEUTROPHILS % 76.2 % (36.0-66.0); PLATELET COUNT, AUTOMATED 284 10^3/uL (150-450)
[2025-07-26 16:19] LABS: INR 1.04
[2025-07-26 16:39] LABS: CALCIUM LEVEL 9.5 MG/DL (8.3-10.6); CARBON DIOXIDE LEVEL 24 MMOL/L (20-31); CHLORIDE LEVEL 102 MMOL/L (98-107); CREATININE FOR GFR 0.42 MG/DL (0.70-1.30); GLOMERULAR FILTRATION RATE > 90.0 (>49); POTASSIUM SERUM 3.8 MMOL/L (3.5-5.1); SODIUM LEVEL 137 MMOL/L (136-145)
[2025-07-26 18:10] LABS: ERYTHROCYTE SEDIMENTATION RATE > 130 mm/hr (0-20)
[2025-07-26 18:31] LABS: C REACTIVE PROTEIN QUANTITATIV 5.68 MG/DL (<1.0)
[2025-07-26 19:09] VITALS: BP 121/86; TEMP 97.6; O2SAT 100
[2025-07-26] MEDS ORDERED: VALA1TAB5 PO (19:44)
[2025-07-26] MEDS ORDERED: VALA1TAB5 GT (19:49)
[2025-07-26 20:10] LABS: HIV 1&2 SCREEN NEGATIVE (NEGATIVE)
[2025-07-30] MEDS ORDERED: PANT40TA29 PO (11:56)
[2025-07-30 18:56] LABS: HSV-1 DNA Not Detected (Not Detected); HSV-2 DNA Not Detected (Not Detected)
== END 2025-07-26 19:57 | disposition home or self-care (01) ==
LOC: M ED 13:42
DX: B02.1 Zoster meningitis (principal); I10 Essential (primary) hypertension; C32.9 Malignant neoplasm of larynx, unspecified; F17.200 Nicotine dependence, unspecified, uncomplicated; Z86.79 Personal history of other diseases of the circulatory system; Z79.83 Long term (current) use of bisphosphonates; Z79.899 Other long term (current) drug therapy

== ENCOUNTER 2025-07-31 12:41 | Emergency (ER) | payer MEDICARE, MEDICAID ==
[~2025-07-31] VITALS: Ht 182.9 cm; Wt 57.7 kg
[~2025-07-31 12:41] MED LIST changes: -PERM5CRE9 TOP; +PERM60CR2 TOP; +VALA1TAB5 GT; +VALA1TAB5 PO
[2025-07-31] MEDS ORDERED: PRED10TA2 PO (14:29)
[2025-07-31 14:50] VITALS: BP 130/71; TEMP 96.8; O2SAT 100
== END 2025-07-31 14:51 | disposition home or self-care (01) ==
LOC: M ED 12:41
DX: B02.8 Zoster with other complications (principal); M62.81 Muscle weakness (generalized); I10 Essential (primary) hypertension; R51.9 Headache, unspecified; F17.200 Nicotine dependence, unspecified, uncomplicated; Z79.83 Long term (current) use of bisphosphonates; Z79.899 Other long term (current) drug therapy
CPT/HCPCS: 96372; 99283; J2919